=== PATIENT | male | born 1995 | race African-American/Black ===

== ENCOUNTER 2017-05-18 15:37 | Emergency (ER) | payer SELFPAY ==
[2017-05-18 15:45] VITALS: BP 127/81
--- NOTE | 2017-05-18 15:52 | ER Document Report ---
ED Medical Screen (RME) - General Chief Complaint: Suicidal Ideation Stated Complaint: PSYCH PROBLEM Time Seen by Provider: 05/18/17 15:51 Notes: Patient states that he is depressed secondary to some family issues. Apparently per police he put a gun to his head today and said he was going to kill himself. Police state when they arrived he came with them voluntarily and has been cooperative since. TRAVEL OUTSIDE OF THE [place] IN LAST 30 DAYS: No - Related Data Allergies/Adverse Reactions: No Known Allergies Allergy (Verified 05/18/17 15:40) Home Medications: Current Home Medications No Home Medications 05/18/17 [History] Physical Exam - Vital signs Vitals: Temp Pulse Resp BP Pulse Ox 98.5 F 73 17 127/81 H 100 05/18/17 15:44 05/18/17 15:44 05/18/17 15:44 05/18/17 15:44 05/18/17 15:44 Course - Vital Signs Vital signs: Temp Pulse Resp BP Pulse Ox 98.5 F 73 17 127/81 H 100 05/18/17 15:44 05/18/17 15:44 05/18/17 15:44 05/18/17 15:44 05/18/17 15:44
--- NOTE | 2017-05-18 16:33 | ER Document Report ---
ED Psych Disorder / Suicide - General Chief Complaint: Suicidal Ideation Stated Complaint: PSYCH PROBLEM Time Seen by Provider: 05/18/17 15:51 Notes: Patient states that he is depressed secondary to some family issues. He said that his mom was bothering him today and would not give him any room. Apparently per police he put a gun to his head today and said he was going to kill himself. Police state when they arrived he came with them voluntarily and has been cooperative since. Patient said that he did not really want to hurt himself and he has never felt depressed before. He denies hallucinations, homicidal ideation or any medical issues. TRAVEL OUTSIDE OF THE [place] IN LAST 30 DAYS: No - Related Data Allergies/Adverse Reactions: No Known Allergies Allergy (Verified 05/18/17 15:40) Home Medications: Current Home Medications No Home Medications 05/18/17 [History] Past Medical History - General Information source: Patient - Social History Smoking Status: Current Every Day Smoker Chew tobacco use (# tins/day): No Frequency of alcohol use: Occasional Drug Abuse: Marijuana Family History: Reviewed & Not Pertinent Patient has suicidal ideation: No Patient has homicidal ideation: No Renal/ Medical History: Denies: Hx Peritoneal Dialysis Review of Systems - Review of Systems Notes: REVIEW OF SYSTEMS: CONSTITUTIONAL: -fevers, -chills EENT: -eye pain, -difficulty swallowing, -nasal congestion CARDIOVASCULAR:-chest pain, -syncope. RESPIRATORY: -cough, -SOB GASTROINTESTINAL: -abdominal pain, - nausea, -vomiting, -diarrhea GENITOURINARY: -dysuria, -hematuria MUSCULOSKELETAL: -back pain, -neck pain SKIN: -rash or skin lesions. HEMATOLOGIC: -easy bruising or bleeding. LYMPHATIC: -swollen, enlarged glands. NEUROLOGICAL: -altered mental status or loss of consciousness, -headache, - neurologic symptoms PSYCHIATRIC: -anxiety, +depression, -SI or HI ALL OTHER SYSTEMS REVIEWED AND NEGATIVE. Physical Exam - Vital signs Vitals: Temp Pulse Resp BP Pulse Ox 98.5 F 73 17 127/81 H 100 05/18/17 15:44 05/18/17 15:44 05/18/17 15:44 05/18/17 15:44 05/18/17 15:44 - Notes Notes: PHYSICAL EXAMINATION: GENERAL: Well-appearing, well-nourished and in no acute distress. HEAD: Atraumatic, normocephalic. EYES: Pupils equal round and reactive to light, extraocular movements intact, sclera anicteric, conjunctiva are normal. ENT: nares patent, oropharynx clear without exudates. Moist mucous membranes. NECK: Normal range of motion, supple without lymphadenopathy LUNGS: Breath sounds clear to auscultation bilaterally and equal. No wheezes rales or rhonchi. HEART: Regular rate and rhythm without murmurs ABDOMEN: Soft, nontender, normoactive bowel sounds. No guarding, no rebound. No masses appreciated. EXTREMITIES: Normal range of motion, no pitting or edema. No cyanosis. NEUROLOGICAL: Cranial nerves grossly intact. Normal speech, normal gait. Normal sensory and motor exams. PSYCH: Cooperative mood. No SI or HI. SKIN: Warm, Dry, normal turgor, no rashes or lesions noted. Course - Re-evaluation Re-evalutation: 05/18/17 17:06 Pt states that he only was upset after a fight with his mom and that he was only wanting attention when he angle gun to his head. He denies any active SI or HI. He agrees to stay overnight to talk to mental health in the morning. - Vital Signs Vital signs: Temp Pulse Resp BP Pulse Ox 98.5 F 73 17 127/81 H 100 05/18/17 15:44 05/18/17 15:44 05/18/17 15:44 05/18/17 15:44 05/18/17 15:44 - Laboratory Result Diagrams: 05/18/17 16:15 05/18/17 16:15 Laboratory results interpreted by me: 05/18/17 05/18/17 16:15 16:27 Sodium 146.3 H Creatinine 1.32 H Calcium 10.7 H Total Protein 8.9 H Albumin 5.1 H Urine Protein >=500 H Urine Ketones TRACE H Urine Urobilinogen 4.0 H Salicylates < 1.0 L Acetaminophen < 10 L - EKG Interpretation by Me EKG shows normal: Sinus rhythm, [place], Intervals, QRS Complexes, ST-T Waves Additional EKG results interpreted by me: Early repolarization. Discharge - Discharge Clinical Impression: Suicide gesture Qualifiers: Encounter type: initial encounter Qualified Code(s): X83.8XXA - Intentional self-harm by other specified means, initial encounter Condition: Stable Disposition: PSYCH HOSP/UNIT
[2017-05-18 16:34] LABS: ABSOLUTE LYMPHOCYTES (AUTO) 1.1 10^3/uL (0.5-4.7); ABSOLUTE MONOCYTES (AUTO) 0.7 10^3/uL (0.1-1.4); ABSOLUTE NEUT (AUTO) 5.5 10^3/uL (1.7-8.2); BASOPHILS % (AUTO) 0.6 % (0-2); EOSINOPHILS % (AUTO) 0.5 % (0-6); HEMATOCRIT 49.2 % (37.9-51.0); HEMOGLOBIN 16.8 g/dL (13.5-17.0); HGB HCT DIFFERENCE 1.2; LYMPHOCYTES % (AUTO) 15.5 % (13-45); MEAN CORPUSCULAR HEMOGLOBIN 30.4 pg (27.0-33.4); MEAN CORPUSCULAR HGB CONC 34.2 g/dL (32.0-36.0); MEAN CORPUSCULAR VOLUME 89 fl (80-97); MONOCYTES % (AUTO) 9.9 % (3-13); RED BLOOD COUNT 5.53 10^6/uL (4.35-5.55); RED CELL DISTRIBUTION WIDTH 13.4 % (11.5-14.0); SEGMENTED NEUTROPHILS % (AUTO) 73.5 % (42-78); WHITE BLOOD COUNT 7.4 10^3/uL (4.0-10.5)
[2017-05-18 16:50] LABS: APPEARANCE,URINE SLIGHTLY-CLOUDY; BILIRUBIN,URINE NEGATIVE (NEGATIVE); GLUCOSE, URINE NEGATIVE (NEGATIVE); KETONES,URINE TRACE mg/dL (NEGATIVE); LEUKOCYTE ESTERASE,URINE NEGATIVE (NEGATIVE); NITRITE,URINE NEGATIVE (NEGATIVE); PROTEIN,URINE >=500 mg/dL (NEGATIVE); URINE SPECIFIC GRAVITY 1.029
[2017-05-18 16:54] LABS: ALANINE AMINOTRANSFERASE 40 U/L (21-72); ALBUMIN 5.1 g/dL (3.5-5.0); ALCOHOL < 10 mg/dL (NONE DETECTED); ALKALINE PHOSPHATASE 88 U/L (38-126); ANION GAP 14 (5-19); ASPARTATE AMINO TRANSFERASE 44 U/L (17-59); BILIRUBIN,DIRECT 0.4 mg/dL (0.0-0.4); BILIRUBIN,TOTAL 0.7 mg/dL (0.2-1.3); BLOOD UREA NITROGEN 11 mg/dL (7-20); CALCIUM 10.7 mg/dL (8.4-10.2); CARBON DIOXIDE 27 mmol/L (22-30); CHLORIDE 105 mmol/L (98-107); CREATININE RESULT 1.32 mg/dL (0.52-1.25); GLUCOSE 80 mg/dL (75-110); SODIUM 146.3 mmol/L (137-145); TOTAL PROTEIN 8.9 g/dL (6.3-8.2)
[2017-05-18 17:02] LABS: URINE BARBITURATES SCREEN UNCONFIRMED POSITIVE; URINE METHADONE SCREEN NEGATIVE; URINE OPIATES LOW NEGATIVE; URINE PHENCYCLIDINE SCREEN NEGATIVE
--- NOTE | 2017-05-18 17:59 | EKG REPORT ---
SEVERITY:- NORMAL ECG - SINUS RHYTHM ST ELEV, PROBABLE NORMAL EARLY REPOL PATTERN : Confirmed by: Osorio Baker MD 18-May-2017 17:58:51
--- NOTE | 2017-05-20 15:08 | PSYCHOLOGICAL NOTE ---
Psych Note - Psych Note Psych Note: * Reason for Consult: Suicidal gesture * Consent Permissions: Aurelio Shoemaker, friend [phone] Patient states that he is depressed secondary to some family issues. Apparently per police he put a gun to his head today and said he was going to kill himself. Police state when they arrived he came with them voluntarily and has been cooperative since. Patient disclosed that he got into an argument with his mother. He states that it started at approximately 450 in the morning when he got up from work and she refused to take him to work. He states he did not say anything he just went back to bed after her refusing. At approximately 930 this morning she came into his room screaming about how he needed to get up and that he was lazy. 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 He states "it escalated.... It went too far... Should have just walked away." He continued to state that he did end up punching a garage door in anger. He reports that she continued to yell at him following him around and when "she told me I would be better off killing myself.... I pulled out my gun and held to my head asking her cyst which she wanted me to do." Patient states that his brother and sister started getting involved. Patient states he had no intention of using the weapon on himself or anyone else he was just angry. "She works for [employer]... He would think should be able to know how to talk to me.... She talks people all the time at work..why is so hard for her to just talk instead of losing her mind." Patient confirms he no longer has access to any weapons and that [place] [facility] [place]ician spoke with patient's friend, Aurelio Shoemaker [phone], who states that he only has concern about some of the people that his friends he hangs out with. He states that he knows he has tent with a lot of nagging from home. He continued to state that he knows the patient was very depressed about 6 months ago but denies patient would ever harm himself. He continues state that he would definitely never hurt anyone else stating that he would take it out on himself before he would ever do anything to anybody else. He states that the patient can yell and scream back at his mother so is not surprised it has to come out some way. He agrees to be part of discharge plan i.e. no access to medications or weapons and follow through with mental health services. Patient is alert and orientated to person, place, time and circumstance. Mood is slightly nervous however overall euthymic with congruent affect. Patient denies suicidal homicidal ideation discloses suicidal gesture as a way of attempting to communicate. Patient denies auditory visual hallucinations. Delusions are absent and behaviors congruent with intact reality based presentation i.e. organized, linear, rational thinking. Eye contact was well- maintained. Conversational speech was within normal rate, tone and prosody. Intellectual abilities appear to be within the average range. Attention and concentration are good. Insight, judgment, impulse control is fair. 311 (F32.9) unspecified depressive disorder V61.20 (6 2.820) parent child relational problem Impression\\plan: Patient is considered psychiatrically clear. Patient does not meet IVC criteria per [place] GS 122C. Patient denies suicidal homicidal ideation stating suicidal gesture was an attempt at communication. Patient denies any thoughts of harming himself or others. Patient no longer has access to any weapons. Patient has no plans to returning to his mother's home tonight and will be making arrangements to obtaining his own home. Patient's friend Aurelio Shoemaker agrees to be part of patient's discharge plan to ensure the patient does not have access to weapons or medications and follows through with outpatient mental health treatment. Dr. Marion was consulted and the care management this patient; to the physician in agreement with her conditions and disposition
== END 2017-05-18 17:55 | disposition home or self-care (01) ==
LOC: ER 15:37
DX: F32.9 Major depressive disorder, single episode, unspecified (principal); Z62.820 Parent-biological child conflict; R45.851 Suicidal ideations; F17.200 Nicotine dependence, unspecified, uncomplicated; F12.10 Cannabis abuse, uncomplicated
CPT/HCPCS: 36415; 80053; 80307; 81001; 85025; 93005; 93010; 99285

== ENCOUNTER 2018-12-05 15:28 | Emergency (ER) | payer SELFPAY ==
[2018-12-05 15:58] VITALS: BP 128/76
[2018-12-05] MEDS ORDERED: VALACYCLOVIR HCL 500 MG TABLET PO ONE (16:44)
[2018-12-05] MEDS ORDERED: CEFTRIAXONE INJ 250 MG VIAL IM ONE (16:44)
[2018-12-05] MEDS ORDERED: AZITHROMYCIN 250 MG TABLET PO ONE (16:44)
[2018-12-05] MEDS ORDERED: LIDOCAINE 1% INJ-PF (10 MG/ML) 30 ML SDV INJ ONE (16:44)
[2018-12-05 16:50] LABS: APPEARANCE,URINE CLEAR; BILIRUBIN,URINE NEGATIVE (NEGATIVE); COLOR,URINE YELLOW; GLUCOSE, URINE NEGATIVE (NEGATIVE); KETONES,URINE NEGATIVE (NEGATIVE); LEUKOCYTE ESTERASE,URINE NEGATIVE (NEGATIVE); NITRITE,URINE NEGATIVE (NEGATIVE); PROTEIN,URINE NEGATIVE (NEGATIVE); UROBILINOGEN,URINE NEGATIVE mg/dL (<2.0)
--- NOTE | 2018-12-05 16:50 | ER Document Report ---
ED GI/ - General Chief Complaint: STD Exposure Stated Complaint: URINARY ISSUE Time Seen by Provider: 12/05/18 16:11 Mode of Arrival: Ambulatory Information source: Patient Notes: 23-year-old male presented to ED for complaint of painful bumps to his penis, he states he thinks he has been exposed to STD and would like to get tested and treated. He states he is sexually active with his significant other who is a 17-year-old female. Patient is alert oriented respirations regular and unlabored speaking in full sentences walks with a even steady gait. He also has other lesions that look like they are possibly genital warts. He does have one lesion that looks like genital herpes. He does not have any canker sores that I have seen. Patient has been recommended that he follow-up with health department and get tested for syphilis HIV and herpes. TRAVEL OUTSIDE OF THE [place] IN LAST 30 DAYS: No - HPI Patient complains to provider of: Other - Painful penile lesion as well as other nonpainful lesion on penis that look to be genital warts. He does not have any non-painful chancroid noted. Onset: Other Timing/Duration: Gradual Quality of pain: Sharp, Throbbing Severity at maximum: Mild Severity in ED: Mild Pain Level: 1 Associated symptoms: Other - See above note Exacerbated by: Denies Relieved by: Denies Similar symptoms previously: No Recently seen / treated by doctor: No - Related Data Allergies/Adverse Reactions: No Known Allergies Allergy (Verified 12/05/18 15:49) Past Medical History - General Information source: Patient - Social History Smoking Status: Former Smoker - E-cigarette Chew tobacco use (# tins/day): No Frequency of alcohol use: None Drug Abuse: Marijuana Lives with: Spouse/Significant other Family History: Reviewed & Not Pertinent Patient has suicidal ideation: No Patient has homicidal ideation: No - Past Medical History Cardiac Medical History: Reports: None Pulmonary Medical History: Reports: None EENT Medical History: Reports: None Neurological Medical History: Reports: None Endocrine Medical History: Reports: None Renal/ Medical History: Reports: None Malignancy Medical History: Reports None GI Medical History: Reports: None Musculoskeletal Medical History: Reports None Skin Medical History: Reports None Psychiatric Medical History: Reports: Hx Attention Deficit Hyperactivity Disorder Traumatic Medical History: Reports: None Infectious Medical History: Reports: None Surgical Hx: Negative Past Surgical History: Reports: None - Immunizations Immunizations up to date: Yes Hx Diphtheria, Pertussis, Tetanus Vaccination: Yes Review of Systems - Review of Systems Constitutional: No symptoms reported EENT: No symptoms reported Cardiovascular: No symptoms reported Respiratory: No symptoms reported Gastrointestinal: No symptoms reported Genitourinary: No symptoms reported Male Genitourinary: No symptoms reported Musculoskeletal: No symptoms reported Skin: Lesions Hematologic/Lymphatic: No symptoms reported Neurological/Psychological: No symptoms reported -: Yes All other systems reviewed and negative Physical Exam - Vital signs Vitals: Temp Pulse Resp BP Pulse Ox 98.1 F 50 L 18 128/76 H 100 12/05/18 15:58 12/05/18 15:58 12/05/18 15:58 12/05/18 15:58 12/05/18 15:58 Interpretation: Normal - General General appearance: Appears well, Alert - HEENT Head: Normocephalic, Atraumatic Eyes: Normal Pupils: PERRL - Respiratory Respiratory status: No respiratory distress Chest status: Nontender Breath sounds: Normal Chest palpation: Normal - Cardiovascular Rhythm: Regular Heart sounds: Normal auscultation Murmur: No - Abdominal Inspection: Normal Distension: No distension Bowel sounds: Normal Tenderness: Nontender Organomegaly: No organomegaly - Genitourinary Inspection: Other - Herpetic type lesion to the penis, fleshy nontender raised papules to the penis, no chancroids noted Tenderness: Lesions Cremasteric reflex: Normal Scrotum: Normal - Back Back: Normal, Nontender - Extremities General upper extremity: Normal inspection, Nontender, Normal color, Normal ROM, Normal temperature General lower extremity: Normal inspection, Nontender, Normal color, Normal ROM, Normal temperature, Normal weight bearing. No: Shamika's sign - Neurological Neuro grossly intact: Yes Cognition: Normal Orientation: AAOx4 [place] Coma Scale Eye Opening: Spontaneous [place] Coma Scale Verbal: Oriented [place] Coma Scale Motor: Obeys Commands Т[place] Coma Scale Total: 15 Speech: Normal Motor strength normal: LUE, RUE, LLE, RLE Sensory: Normal - Psychological Associated symptoms: Normal affect, Normal mood - Skin Skin Temperature: Warm Skin Moisture: Dry Skin Color: Normal Course - Re-evaluation Re-evalutation: 12/05/18 16:50 Patient was treated with azithromycin, Rocephin, and Valtrex he will be discharged home with prescription for Valtrex. We will wait for urine results for a urinalysis patient will be given the number for the call results for the GC and chlamydia. Patient has been instructed to follow-up with the health department for HIV hepatitis and herpes testing. - Vital Signs Vital signs: Temp Pulse Resp BP Pulse Ox 98.1 F 50 L 18 128/76 H 100 12/05/18 15:58 12/05/18 15:58 12/05/18 15:58 12/05/18 15:58 12/05/18 15:58 Discharge - Discharge Clinical Impression: Genital herpes in men, Burning with urination Condition: Stable Disposition: HOME, SELF-CARE Instructions: Family Physicians / Practices Additional Instructions: Herpes You have been diagnosed as having a herpes virus infection. The herpes ("cold sore") virus usually infects the areas around the mouth. However, it can cause infection on any skin surface. It's particularly dangerous if infection occurs in the eye. On the initial infection, herpes blisters erupt over a large area. There is usually fever and aching. This infection takes about 14 days to resolve. After the initial infection, herpes sores can erupt on small areas (usually the lips), then heal in about a week. Sunburn, fever, local irritation, or even emotions can provoke a "fever blister" attack of herpes. Initial herpes infections can be treated with medication if severe. Subsequent attacks are usually given only local care to reduce symptoms; however, the physician may decide to prescribe anti-viral medication if your case warrants it. Call the doctor if you are worsening in any way. CEPHALOSPORINS: An antibiotic of the cephalosporin class has been prescribed. This type of antibiotic covers a wide variety of infections, including those of the skin, lungs, middle ear, and urinary tract. This antibiotic is somewhat similar to the penicillin family. In rare cases, a person who is allergic to penicillin will also be allergic to this medication. If you have had a severe allergic reaction to penicillin, and have not taken this antibiotic since that time, notify your doctor. Antibiotics which cover many germs ("broad spectrum" antibiotics) are more likely to cause diarrhea or "yeast" infections. Women prone to vaginal yeast problems may suffer an attack after taking this antibiotic. In infants, oral thrush (white spots "stuck" on the cheek) or yeast diaper rash may result. See your doctor if these problems occur. Call the doctor at once if you develop hives, itching, shortness of breath, or lightheadedness. AZITHROMYCIN: Azithromycin (Zithromax) is a broad spectrum antibiotic in the same class as erythromycin. It can treat a variety of bacterial infections, but is most frequently used for respiratory infections. Azithromycin is extremely long-lasting. It accumulates in body tissues and continues to kill bacteria for many days. In order to improve absorption, Azithromycin should be taken at least one hour before or two hours after a meal. It does not have the same strong tendency to upset the stomach as erythromycin and is usually very well tolerated. Patients who have had a rash or other true allergic reactions to erythromycin should not take this medication. Call if you develop gastrointestinal distress, severe diarrhea, rash, hives, itching, or shortness of breath. Valtrex Valtrex is used to treat infections caused by the Herpes family of viruses. It's available as capsules or ointment. Valtrex is most effective if started at the first sign of the viral outbreak. It can decrease the severity and duration of symptoms. However, it doesn't eliminate the virus from the body completely. If you're prone to repeated outbreaks of herpes, you'll continue to have attacks. If pills have been prescribed, take them for the full recommended course. Occasionally, mild nausea or headaches may occur. Call the doctor if you develop wheezing, itching, rash, shortness of breath, or lightheadedness. FOLLOW-UP CARE: If you have been referred to a physician for follow-up care, call the physicians office for an appointment as you were instructed or within the next two days. If you experience worsening or a significant change in your symptoms, notify the physician immediately or return to the Emergency Department at any time for re-evaluation. Prescriptions: Valacyclovir HCl [Valtrex] 1,000 mg PO BID #20 tablet Forms: Elevated Blood Pressure, Smoking Cessation Education
[2018-12-05] MEDS ORDERED: PROMETHAZINE HCL 25 MG TABLET PO ONE (17:30)
[2018-12-05 18:31] LABS: CHLAM PCR NOT DETECTED (NOT DETECT)
== END 2018-12-05 17:33 | disposition home or self-care (01) ==
LOC: ER 15:28
DX: A60.01 Herpesviral infection of penis (principal); R30.0 Dysuria
CPT/HCPCS: 99283; 96372; 81001; 87491; 87591; J3490; J0696

== ENCOUNTER 2019-04-26 11:39 | Emergency (ER) | payer SELFPAY ==
[2019-04-26 11:43] VITALS: BP 139/72
[2019-04-26] MEDS ORDERED: VALACYCLOVIR HCL 500 MG TABLET PO ONE (12:10)
[2019-04-26] MEDS ORDERED: PENICILLIN G BENZATHINE 1.2 MILLION UNIT/2 ML DISP.SYRIN IM ONE (12:11)
--- NOTE | 2019-04-26 12:11 | ER Document Report ---
ED Skin Rash/Insect Bite/Abscs - General Chief Complaint: Rash Stated Complaint: GENITAL CHECKUP Time Seen by Provider: 04/26/19 12:02 Mode of Arrival: Ambulatory Information source: Patient Notes: 24-year-old male presented to ED for a nonpainful rash to his penis. He has been previously diagnosed with genital herpes but then the rash was painful this 1 is not. He will be tested for syphilis and herpes and treated for both as the results will not come back until next week. TRAVEL OUTSIDE OF THE [place] IN LAST 30 DAYS: No - HPI Patient complains to provider of: Skin rash/lesion Onset/Duration: Gradual Quality of pain: No pain Severity: None Pain Level: Denies Skin Character: Rash Identify cause: No Exacerbated by: Denies Relieved by: Denies Similar symptoms previously: Yes Recently seen / treated by doctor: No - Related Data Allergies/Adverse Reactions: No Known Allergies Allergy (Verified 04/26/19 11:59) Past Medical History - General Information source: Patient - Social History Smoking Status: Current Every Day Smoker Cigarette use (# per day): Yes Smoking Education Provided: Yes - 4 min Frequency of alcohol use: Rare Drug Abuse: Marijuana Lives with: Spouse/Significant other Family History: Reviewed & Not Pertinent - Past Medical History Cardiac Medical History: Reports: None Pulmonary Medical History: Reports: None EENT Medical History: Reports: None Neurological Medical History: Reports: None Endocrine Medical History: Reports: None Renal/ Medical History: Reports: None Malignancy Medical History: Reports None GI Medical History: Reports: None Musculoskeletal Medical History: Reports None Skin Medical History: Reports None Psychiatric Medical History: Reports: Hx Attention Deficit Hyperactivity Disorder Traumatic Medical History: Reports: None Infectious Medical History: Reports: None Surgical Hx: Negative Past Surgical History: Reports: None - Immunizations Immunizations up to date: Yes Hx Diphtheria, Pertussis, Tetanus Vaccination: Yes Review of Systems - Review of Systems Constitutional: No symptoms reported EENT: No symptoms reported Cardiovascular: No symptoms reported Respiratory: No symptoms reported Gastrointestinal: No symptoms reported Genitourinary: No symptoms reported Male Genitourinary: No symptoms reported, Other - Nonpainful rash to the penis Musculoskeletal: No symptoms reported Skin: No symptoms reported Hematologic/Lymphatic: No symptoms reported Neurological/Psychological: No symptoms reported -: Yes All other systems reviewed and negative Physical Exam - Vital signs Vitals: Temp Pulse Resp BP Pulse Ox 97.8 F 68 16 139/72 H 99 04/26/19 11:42 04/26/19 11:42 04/26/19 11:42 04/26/19 11:42 04/26/19 11:42 Interpretation: Normal - General General appearance: Appears well, Alert - HEENT Head: Normocephalic, Atraumatic Eyes: Normal Pupils: PERRL - Respiratory Respiratory status: No respiratory distress Chest status: Nontender Breath sounds: Normal Chest palpation: Normal - Cardiovascular Rhythm: Regular Heart sounds: Normal auscultation Murmur: No - Abdominal Inspection: Normal Distension: No distension Bowel sounds: Normal Tenderness: Nontender Organomegaly: No organomegaly - Genitourinary Inspection: Other - Rash to the penis area was vesicular one area it was a ulcer Tenderness: Nontender Cremasteric reflex: Normal Scrotum: Normal - Back Back: Normal, Nontender - Extremities General upper extremity: Normal inspection, Nontender, Normal color, Normal ROM, Normal temperature General lower extremity: Normal inspection, Nontender, Normal color, Normal ROM, Normal temperature, Normal weight bearing. No: Shamika's sign - Neurological Neuro grossly intact: Yes Cognition: Normal Orientation: AAOx4 Татьяна Coma Scale Eye Opening: Spontaneous Татьяна Coma Scale Verbal: Oriented Татьяна Coma Scale Motor: Obeys Commands Татьяна Coma Scale Total: 15 Speech: Normal Motor strength normal: LUE, RUE, LLE, RLE Sensory: Normal - Psychological Associated symptoms: Normal affect, Normal mood - Skin Skin Temperature: Warm Skin Moisture: Dry Skin Color: Normal Skin irregularity: Rash - One area of vesicular one area ulcer to the penis, Pat Ramires RN present for exam Course - Re-evaluation Re-evalutation: 04/26/19 12:28 Patient will be tested for syphilis and herpes he will be treated with penicillin G and Valtrex until results are returned. Patient has been instructed to call the results line for his results next week. Patient verbalized understanding and agreement with treatment. Patient also verbalized understanding he needed to wear condoms with any sexual intercourse until he he received the results and they are negative if they are positive his partner needs to be treated. - Vital Signs Vital signs: Temp Pulse Resp BP Pulse Ox 97.8 F 68 16 139/72 H 99 04/26/19 11:42 04/26/19 11:42 04/26/19 11:42 04/26/19 11:42 04/26/19 11:42 Discharge - Discharge Clinical Impression: Rash of penis Condition: Stable Disposition: HOME, SELF-CARE Instructions: Family Physicians / Practices, [facility] Additional Instructions: Genital Herpes Your exam suggests that you have a herpes infection. A culture can confirm the diagnosis. Herpes is caused by a virus, and can be transmitted sexually. After the initial infection has healed, the virus often erupts at the same location from time to time. Herpes can be treated with anti-viral medication. The medicine can be used as pills or ointment. It's most effective if started with the first symptoms of the attack. It is not a "cure" -- it simply shortens the length of the illness. If this is not your first attack, the medicine may not help you. In the female, herpes can infect the baby as it passes through the canal, causing a life-threatening disease. You should inform the faculty physician that you've had herpes should you (or your spouse) become . Sexual contact should be avoided any time the sores are present, but the virus may be contagious even at other times. The use of condoms may help prevent infection in your partner. You have been tested for herpes and for syphilis. I have treated for both today because neither one will get resultant until next week. The results line is [phone] the simplest results will be back Monday the herpes may take longer. Valtrex Valtrex is used to treat infections caused by the Herpes family of viruses. It's available as capsules or ointment. Valtrex is most effective if started at the first sign of the viral outbreak. It can decrease the severity and duration of symptoms. However, it doesn't eliminate the virus from the body completely. If you're prone to repeated outbreaks of herpes, you'll continue to have attacks. Apply ointment with a disposable glove or finger-cot to avoid spreading the virus with your finger. If pills have been prescribed, take them for the full recommended course. Occasionally, mild nausea or headaches may occur. Call the doctor if you develop wheezing, itching, rash, shortness of breath, or lightheadedness. Penicillins The antibiotic you have received is a member of the penicillin family. This is a very useful class of antibiotics. The particular type of antibiotic chosen for you was determined by the nature of your problem. Penicillins are absorbed best when taken on an empty stomach, and should be taken either a half hour before or two hours after a meal. Some newer medicines of the penicillin class are better taken with food -- if this is the case, the pharmacist will label the medicine to alert you. Penicillins usually have no side effects. However, allergy to penicillins is common. If you have had an allergic reaction to any drug of the penicillin family, you should never take any other penicillin. Notify your doctor at once if you develop hives, itching, swelling, roge tness, or shortness of breath. Less serious side effects can include nausea or diarrhea. FOLLOW-UP CARE: If you have been referred to a physician for follow-up care, call the physicians office for an appointment as you were instructed or within the next two days. If you experience worsening or a significant change in your symptoms, notify the physician immediately or return to the Emergency Department at any time for re-evaluation. Prescriptions: Valacyclovir HCl [Valtrex] 1,000 mg PO BID #20 tablet Forms: Elevated Blood Pressure, Smoking Cessation Education
[2019-04-30 13:37] LABS: HSV 1 IGM AB <1:10 titer (<1:10)
[2019-04-30 14:44] LABS: HSV 2 IGM AB <1:10 titer (<1:10)
== END 2019-04-26 12:49 | disposition home or self-care (01) ==
LOC: ER 11:39
DX: R21 Rash and other nonspecific skin eruption (principal); N48.5 Ulcer of penis; F17.210 Nicotine dependence, cigarettes, uncomplicated; Z71.6 Tobacco abuse counseling; F12.10 Cannabis abuse, uncomplicated
CPT/HCPCS: 99283; 96372; 36415; 86592; 86695; 86696; J0561

== ENCOUNTER 2019-06-15 17:41 | Emergency (ER) | payer SELFPAY ==
[2019-06-15] MEDS ORDERED: CEFTRIAXONE INJ 250 MG VIAL IM ONE (17:44)
[2019-06-15] MEDS ORDERED: LIDOCAINE 1% INJ-PF (10 MG/ML) 30 ML SDV INJ ONE (17:44)
[2019-06-15] MEDS ORDERED: AZITHROMYCIN 250 MG TABLET PO ONE (17:44)
[2019-06-15 17:49] VITALS: BP 135/76
--- NOTE | 2019-06-15 17:49 | ER Document Report ---
HPI - HPI Time Seen by Provider: 06/15/19 17:48 Notes: Patient is a 24-year-old male who presents complaining of urethral discharge that he noticed today. Patient is concerned that he may have been exposed to an STD. He is able to eat and drink without difficulty otherwise. He is urinating normally and having normal bowel movements. Denies drug allergies. No other concerns or complaints. Denies any headache, fever, neck pain, URI, sore throat, chest pain, palpitations, syncope, cough, shortness of breath, wheeze, dyspnea, abdominal pain, nausea/vomiting/diarrhea, urinary retention, dysuria, hematuria, or rash. - ROS Systems Reviewed and Negative: Yes All other systems reviewed and negative - REPRODUCTIVE Reproductive: DENIES: : Past Medical History - Social History Smoking Status: Unknown if Ever Smoked Family History: Reviewed & Not Pertinent Renal/ Medical History: Denies: Hx Peritoneal Dialysis Psychiatric Medical History: Reports: Hx Attention Deficit Hyperactivity Disorder - Immunizations Immunizations up to date: Yes Hx Diphtheria, Pertussis, Tetanus Vaccination: Yes Vertical Provider Document - CONSTITUTIONAL Agree With Documented VS: Yes Notes: PHYSICAL EXAMINATION: GENERAL: Well-appearing, well-nourished and in no acute distress. HEAD: Atraumatic, normocephalic. EYES: Pupils equal round and reactive to light, extraocular movements intact, sclera anicteric, conjunctiva are normal. ENT: Nares patent and without discharge. oropharynx clear without exudates. No tonsilar hypertrophy or erythema. Moist mucous membranes. NECK: Normal range of motion, supple without lymphadenopathy LUNGS: Breath sounds clear to auscultation bilaterally and equal. No wheezes ra les or rhonchi. HEART: Regular rate and rhythm without murmurs, rubs, gallops. ABDOMEN: Soft, nontender, nondistended abdomen. No guarding, no rebound. Normal bowel sounds present. No CVA tenderness bilaterally. : + scant clear urethral discharge. There is no erythema, swelling, ecchymosis, rash, necrosis noted. There is no obvious inguinal hernia. Nontender to palpation of the testicles, scrotum, epididymal sacs, and penis. No transverse testicular lie. Cremasterics intact bilaterally. Musculoskeletal: FROM to passive/active. Strength 5+/5. Extremities: No cyanosis, clubbing, or edema b/l. Peripheral pulses 2+. Capillary refill less than 3 seconds. NEUROLOGICAL: Normal speech, normal gait. Normal sensory, motor exams PSYCH: Normal mood, normal affect. SKIN: Warm, Dry, normal turgor, no rashes or lesions noted. - INFECTION CONTROL TRAVEL OUTSIDE OF THE [place] IN LAST 30 DAYS: No Course - Re-evaluation Re-evalutation: 06/15/19 17:55 Patient is an afebrile, well-hydrated, 24-year-old male who presents with possible exposure to STD and urethral discharge. Vitals are acceptable without significant tachycardia, tachypnea, or hypoxia. PE is otherwise unremarkable. Patient's abdomen is soft and nontender. Chlamydia gonorrhea tests are pending. Patient did receive Zithromax and Rocephin. No further work-up warranted at this time. Low suspicion/risk for acute appendicitis, bowel obstruction, acute cholecystitis, perforated diverticulitis, incarcerated hernia, pancreatitis, perforated ulcer, peritonitis, sepsis, testicular torsion, or other systemic emergent condition at this time. Patient is aware that his condition can change from initial presentation and he needs to monitor symptoms closely and seek medical attention if any acute changes. Conservative measures otherwise for symptoms. Recheck with PCM in 2-3 days. See the health department this next week. Return to the ED with any worsening/concerning symptoms otherwise as reviewed in discharge. Patient is in agreement. Discharge - Discharge Clinical Impression: STD exposure, Urethral discharge in male Condition: Stable Disposition: HOME, SELF-CARE Additional Instructions: Maintain fluid intake Proper hygienic technique Keep the skin clean Safe sexual practices with condoms everytime Tylenol/ibuprofen as needed Check in with the health department this week for further testing if warranted Your chlamydia/gonorrhea tests are pending and you will be notified if positive results; you may call in 1 day for the results as well F/u with your PCM in 3-5 days for a recheck Return to the ED with any development of ELLIOTT/fever, trouble with vision, eye redness, worsening pain, urethral discharge, urinary retention, blood in the urine, flank pain, abdominal pain, n/v, Chest Pain, shortness of breath, joint pains, trouble breathing, or any other worsening/concerning symptoms as needed otherwise. [facility] - Follow up in 3-5 days
[2019-06-15 19:37] LABS: CHLAM PCR NOT DETECTED (NOT DETECT)
== END 2019-06-15 18:43 | disposition home or self-care (01) ==
LOC: ER 17:41
DX: R36.9 Urethral discharge, unspecified (principal); Z20.2 Contact with and (suspected) exposure to infections with a predominantly sexual mode of transmission
CPT/HCPCS: 99283; 96372; 87491; 87591; J3490; J0696

== ENCOUNTER 2019-09-21 00:35 | Emergency (ER) | payer SELFPAY ==
--- NOTE | 2019-09-23 09:28 | ER Document Report ---
Entered by HUBER METZGER SCRIBE 09/21/19 0057 Acting as scribe for:ELBA HERNANDES MD ED General - General Chief Complaint: Medical Clearance Stated Complaint: COCAINE USAGE Information source: Patient, Law Enforcement Notes: This 24-year-old male presents to the emergency department for medical clearance. Patient was pulled over prior to arrival by the [place] Police for an outdated license registration. Police reported that the patient had a little bag with a small amount of cocaine and weed in the vehicle. Patient then reportedly passed out and went limp four times. Patient was still passing out when the EMS arrived. Patient stated that he went to switch lanes when he got pulled over. Patient said he just blacked out and reports his heart "skipping beats". Patient denies chills, fever, cough and throat pain. TRAVEL OUTSIDE OF THE [place] IN LAST 30 DAYS: No - Related Data Allergies/Adverse Reactions: No Known Allergies Allergy (Verified 04/26/19 11:59) Past Medical History - General Information source: Patient - Social History Smoking Status: Never Smoker Cigarette use (# per day): No Chew tobacco use (# tins/day): No Drug Abuse: Marijuana Family History: Reviewed & Not Pertinent Psychiatric Medical History: Reports: Hx Attention Deficit Hyperactivity Disorder Surgical Hx: Negative - Immunizations Immunizations up to date: Yes Hx Diphtheria, Pertussis, Tetanus Vaccination: Yes Review of Systems - Review of Systems Constitutional: See HPI. denies: Chills, Fever EENT: See HPI. denies: Throat pain Cardiovascular: See HPI, Palpitations Respiratory: See HPI. denies: Cough Gastrointestinal: No symptoms reported Genitourinary: No symptoms reported Male Genitourinary: No symptoms reported Musculoskeletal: No symptoms reported Skin: No symptoms reported Hematologic/Lymphatic: No symptoms reported Neurological/Psychological: No symptoms reported -: Yes All other systems reviewed and negative Physical Exam - Notes Notes: Physical Exam: General: Alert, appears well. HEENT: Normocephalic. Atraumatic. PERRL. Extraocular movements intact. Oropharynx clear. Neck: Supple. Non-tender. Respiratory: No respiratory distress. Clear and equal breath sounds bilaterally. Cardiovascular: Regular rate and rhythm. Abdominal: Normal Inspection. Non-tender. No distension. Normal Bowel Sounds. Back: No gross abnormalities. Extremities: Moves all four extremities. Upper extremities: Normal inspection. Normal ROM. Lower extremities: Normal inspection. No edema. Normal ROM. Neurological: Normal cognition. AAOx4. Normal speech. Psychological: Normal affect. Normal Mood. Skin: Warm. Dry. Normal color. Discharge - Discharge Clinical Impression: Cocaine abuse Disposition: AGAINST MEDICAL ADVICE I personally performed the services described in the documentation, reviewed and edited the documentation which was dictated to the scribe in my presence, and it accurately records my words and actions.
== END 2019-09-21 00:55 | disposition left against medical advice (07) ==
LOC: ER 00:35
DX: Z02.89 Encounter for other administrative examinations (principal); R00.2 Palpitations
CPT/HCPCS: 99283

== ENCOUNTER 2019-11-01 13:09 | Emergency (ER) | payer SELFPAY ==
[2019-11-01] MEDS ORDERED: AZITHROMYCIN 250 MG TABLET PO ONE (13:59)
[2019-11-01] MEDS ORDERED: CEFTRIAXONE INJ 250 MG VIAL IM ONE (14:03)
--- NOTE | 2019-11-01 14:03 | ER Document Report ---
HPI - HPI Time Seen by Provider: 11/01/19 13:59 Onset: Other - This 24-year-old male presented emergency room today stating that he had come in contact with a sexually transmitted disease by sleeping with a new partner and unprotected manner. He now has yellow discharge and burning on voiding Onset/Duration: Gradual Severity: Mild Pain Level: 2 Associated Symptoms: None Exacerbated by: Denies Relieved by: Denies - REPRODUCTIVE Reproductive: DENIES: : Past Medical History - General Information source: Patient - Social History Smoking Status: Never Smoker Frequency of alcohol use: None Drug Abuse: Marijuana Family History: Reviewed & Not Pertinent Patient has homicidal ideation: No Renal/ Medical History: Denies: Hx Peritoneal Dialysis Psychiatric Medical History: Reports: Hx Attention Deficit Hyperactivity Disorder - Immunizations Immunizations up to date: Yes Hx Diphtheria, Pertussis, Tetanus Vaccination: Yes Vertical Provider Document - CONSTITUTIONAL Agree With Documented VS: Yes - INFECTION CONTROL TRAVEL OUTSIDE OF THE [place] IN LAST 30 DAYS: No - HEENT HEENT: Atraumatic, Normocephalic, PERRLA - NECK Neck: Normal Inspection, Supple - RESPIRATORY Respiratory: Breath Sounds Normal - CARDIOVASCULAR Cardiovascular: Regular Rate, Regular Rhythm - GI/ABDOMEN Gastrointestinal: Abdomen Soft, Abdomen Non-Tender - REPRODUCTIVE Male Genitalia: Normal Inspection - BACK Back: Normal Inspection Course - Vital Signs Vital signs: Temp Pulse Resp BP Pulse Ox 98.4 F 83 16 122/78 100 11/01/19 13:55 11/01/19 13:14 11/01/19 13:14 11/01/19 13:14 11/01/19 13:14 Discharge - Discharge Clinical Impression: Sexually transmitted disease (STD) Condition: Good Disposition: HOME, SELF-CARE Additional Instructions: Medication as provided. Must follow-up with the health department for complete STD testing. Return to ER for any change or worsening. Prescriptions: Doxycycline Hyclate [Vibramycin] 100 mg PO BID #20 capsule
[2019-11-01 14:21] VITALS: BP 132/68
== END 2019-11-01 14:13 | disposition home or self-care (01) ==
LOC: ER 13:09
DX: A64 Unspecified sexually transmitted disease (principal)
CPT/HCPCS: 99283; 96372; J0696